=== PATIENT | male | born 1945 | race Caucasian/White ===

== ENCOUNTER 2017-05-17 15:29 | Emergency (ER) | payer OTHER ==
--- NOTE | 2017-05-17 16:09 | C.PDOC ---
History Of Present Illness 71 y/o male presents to the ED with complaints of pain to right neck, radiating down from back of head x3 days. Pain initially onset upon waking up. Discomfort radiates down right arm with numbness tingling sensation. Pt states pain is worse at night when trying to sleep. Pt denies any injury or trauma. Pt works loading boxes onto conveyor belt, doesn't think symptoms are work related. Denies vomiting, diarrhea, chest pain, SOB or any other complaints. Time Seen by Provider: 05/17/17 15:36 Chief Complaint (Nursing): Headache History Per: Patient History/Exam Limitations: no limitations Onset/Duration Of Symptoms: Days Current Symptoms Are (Timing): Still Present Severity: Mild Quality: "Pain" Preceeding Symptoms: None Recent travel outside of the [place]: No Past Medical History Reviewed: Historical Data, Nursing Documentation, Vital Signs Vital Signs: Last Vital Signs Temp 98 F 05/17/17 15:31 Pulse 72 05/17/17 15:53 Resp 20 05/17/17 15:53 BP 124/77 05/17/17 15:53 Pulse Ox 96 05/17/17 17:30 Family History: States: Unknown Family Hx - Social History Hx Tobacco Use: Yes Hx Alcohol Use: Yes Hx Substance Use: No - Immunization History Hx Tetanus Toxoid Vaccination: No Hx Influenza Vaccination: No Hx Pneumococcal Vaccination: No Review Of Systems Except As Marked, All Systems Reviewed And Found Negative. Constitutional: Negative for: Fever Cardiovascular: Negative for: Chest Pain Respiratory: Negative for: Shortness of Breath Gastrointestinal: Negative for: Vomiting Musculoskeletal: Positive for: Neck Pain Neurological: Positive for: Numbness (right arm) Physical Exam - Physical Exam Appears: Non-toxic, No Acute Distress Skin: Warm, Dry, No Rash Head: Atraumatic, Normacephalic Eye(s): bilateral: Normal Inspection, PERRL, EOMI Neck: Normal, Normal ROM, No Midline Cervical Tenderness, No Paracervical Tenderness, Supple Chest: Symmetrical Cardiovascular: Rhythm Regular, No Murmur Respiratory: Normal Breath Sounds, No Rales, No Rhonchi, No Wheezing Gastrointestinal/Abdominal: Normal Exam, Soft, No Tenderness Back: Normal Inspection, No Vertebral Tenderness Extremity: Normal ROM, No Tenderness, No Swelling Extremity: Bilateral: Atraumatic Pulses: Right Radial: Normal Neurological/Psych: Oriented x3, Normal Speech, Normal Cognition, Normal Motor, Normal Sensation ED Course And Treatment O2 Sat by Pulse Oximetry: 96 (room air) Pulse Ox Interpretation: Normal - Other Rad XR cervical spine X-Ray: Viewed By Me, Read By Radiologist Interpretation: PROCEDURE: Cervical Spine Radiographs. HISTORY: Pain. COMPARISON: None. FINDINGS: BONES: The heights of the vertebral bodies are maintained. Normal vertebral alignment is maintained. The atlantoaxial articulation is intact. The odontoid process is partially obscured. DISC SPACES : Narrowing of the C5-6 intervertebral disc space consistent with degenerative disc disease. The remaining disc spaces are maintained in height. SOFT TISSUES : Normal. No prevertebral soft tissue swelling. OTHER FINDINGS: None. IMPRESSION: No evidence of fracture. Degenerative disc disease at C5-6. Please note that the odontoid process is suboptimally evaluated on the basis of this examination. - CT Scan/US CT head Other Rad Studies (CT/US): Read By Radiologist, Radiology Report Reviewed CT/US Interpretation: PROCEDURE: CT HEAD WITHOUT CONTRAST. HISTORY: numbness in right arm. COMPARISON: None available. TECHNIQUE: Axial computed tomography images were obtained through the head/brain without intravenous contrast. Radiation dose: Total exam DLP = 801.62 mGy-cm. This CT exam was performed using one or more of the following dose reduction techniques: Automated exposure control, adjustment of the mA and/or kV according to patient size, and/or use of iterative reconstruction technique. FINDINGS: HEMORRHAGE: No intracranial hemorrhage. BRAIN: No mass effect or edema. No atrophy or chronic microvascular ischemic changes. VENTRICLES: Unremarkable. No hydrocephalus. CALVARIUM: Unremarkable. PARANASAL SINUSES: Chronic ethmoid and sphenoid sinusitis noted. MASTOID AIR CELLS: Unremarkable as visualized. No inflammatory changes. OTHER FINDINGS: None. IMPRESSION: No intracranial mass, hemorrhage or evidence of acute infarct. Chronic ethmoid and sphenoid sinusitis. Progress Note: Plan: CT head, EKG, XR cervical spine Reevaluation Time: 17:35 Reassessment Condition: Improved Disposition Counseled Patient/Family Regarding: Studies Performed, Diagnosis, Need For Followup, Rx Given - Disposition Referrals: [facility] [Outside] Disposition: HOME/ ROUTINE Disposition Time: 17:38 Condition: IMPROVED Prescriptions: Naproxen [Naprosyn] 1 tab PO BID PRN #25 tab PRN Reason: Pain Instructions: Cervical Radiculopathy (ED) Print Language: HUNGARIAN - Clinical Impression Clinical Impression: Cervical radiculitis - Scribe Statement The provider has reviewed the documentation as recorded by the Arthur Morales Provider Attestation: All medical record entries made by the Arthur were at my direction and personally dictated by me. I have reviewed the chart and agree that the record accurately reflects my personal performance of the history, physical exam, medical decision making, and the department course for this patient. I have also personally directed, reviewed, and agree with the discharge instructions and disposition.
[2017-05-17 16:10] VITALS: PULSE 72
--- NOTE | 2017-05-17 17:00 | CT ---
PROCEDURE: CT HEAD WITHOUT CONTRAST. HISTORY: numbness in right arm COMPARISON: None available. TECHNIQUE: Axial computed tomography images were obtained through the head/brain without intravenous contrast. Radiation dose: Total exam DLP = 801.62 mGy-cm. This CT exam was performed using one or more of the following dose reduction techniques: Automated exposure control, adjustment of the mA and/or kV according to patient size, and/or use of iterative reconstruction technique. FINDINGS: HEMORRHAGE: No intracranial hemorrhage. BRAIN: No mass effect or edema. No atrophy or chronic microvascular ischemic changes. VENTRICLES: Unremarkable. No hydrocephalus. CALVARIUM: Unremarkable. PARANASAL SINUSES: Chronic ethmoid and sphenoid sinusitis noted. MASTOID AIR CELLS: Unremarkable as visualized. No inflammatory changes. OTHER FINDINGS: None. IMPRESSION: No intracranial mass, hemorrhage or evidence of acute infarct. Chronic ethmoid and sphenoid sinusitis.
--- NOTE | 2017-05-17 17:02 | RAD ---
PROCEDURE: Cervical Spine Radiographs. HISTORY: Pain. COMPARISON: None. FINDINGS: BONES: The heights of the vertebral bodies are maintained. Normal vertebral alignment is maintained. The atlantoaxial articulation is intact. The odontoid process is partially obscured. DISC SPACES: Narrowing of the C5-6 intervertebral disc space consistent with degenerative disc disease. The remaining disc spaces are maintained in height. SOFT TISSUES: Normal. No prevertebral soft tissue swelling. OTHER FINDINGS: None. IMPRESSION: No evidence of fracture. Degenerative disc disease at C5-6. Please note that the odontoid process is suboptimally evaluated on the basis of this examination.
[2017-05-17 17:57] VITALS: BP 135/82; RESP 18; TEMP 98.4; O2SAT 98
--- NOTE | 2017-05-19 06:41 | CARD ---
APPROVED REPORT EKG Measurement Heart [id number] VA [id number] [id number] <Conclusion> Sinus rhythm with short VA Otherwise normal ECG
== END 2017-05-17 18:05 | disposition home or self-care (01) ==
LOC: C.ER 15:29
DX: M54.12 Radiculopathy, cervical region (principal)

== ENCOUNTER 2018-10-27 06:07 | Emergency (ER) | payer OTHER ==
--- NOTE | 2018-10-27 06:17 | C.PDOC ---
History Of Present Illness Patient presents to the ER with an acute allergic reaction of unknown etiology. Patient with facial swelling and urticaria, speaking in complete sentences. Denies chest pain or SOB. Time Seen by Provider: 10/27/18 06:16 History Per: Patient History/Exam Limitations: no limitations Onset/Duration Of Symptoms: Hrs, Sudden Onset Current Symptoms Are (Timing): Still Present Possible Cause: Unknown Associated Symptoms: Skin Rash, Swelling Home/EMS Treatment: None Severity: Moderate Pain Scale Rating Of: 5 Recent travel outside of the [place]: No Past Medical History Reviewed: Historical Data, Nursing Documentation, Vital Signs Family History: States: No Known Family Hx - Social History Hx Tobacco Use: Yes Hx Alcohol Use: Yes Hx Substance Use: No - Immunization History Hx Tetanus Toxoid Vaccination: No Hx Influenza Vaccination: No Hx Pneumococcal Vaccination: No Review Of Systems Constitutional: Negative for: Fever, Chills Cardiovascular: Negative for: Chest Pain, Palpitations Respiratory: Negative for: Cough, Shortness of Breath Musculoskeletal: Positive for: Other (Facial swelling) Skin: Positive for: Rash Physical Exam - Physical Exam Appears: Non-toxic Skin: Warm, Dry, Rash (Diffuse urticaria) Head: Normacephalic, Swelling (Facial) Eye(s): bilateral: Normal Inspection Oral Mucosa: Moist Throat: No Other (Swelling) Neck: Trachea Midline, Supple, No Other (Swelling) Chest: Symmetrical, No Tenderness Cardiovascular: Rhythm Regular Respiratory: No Rales, No Rhonchi, Wheezing (Few scattered) Gastrointestinal/Abdominal: Soft, No Tenderness Neurological/Psych: Oriented x3 ED Course And Treatment Progress Note: IV fluids, benadryl, pepcid, and solumedrol administered. Critical Care Time - Critical Care Note Total Time (in mins): 30 Documented critical care: time excludes all time spent performing seperately billable procedures. Disposition Counseled Patient/Family Regarding: Studies Performed, Diagnosis - Disposition Disposition Time: 06:17 Condition: FAIR - Clinical Impression Clinical Impression: Allergic urticaria - Scribe Statement The provider has reviewed the documentation as recorded by the Scribcoty Marie All medical record entries made by the Orlandoibe were at my direction and personally dictated by me. I have reviewed the chart and agree that the record accurately reflects my personal performance of the history, physical exam, medical decision making, and the department course for this patient. I have also personally directed, reviewed, and agree with the discharge instructions and disposition. Physician Patient Turnover Patient Signed Over To: Bibi Banks Handoff Comments: Pending re-eval and dispo
[2018-10-27 06:18] VITALS: BMI 32.8
[2018-10-27] MEDS ORDERED: DiphenhydrAMINE 50 mg/ml Inj IVP STA (06:18)
[2018-10-27] MEDS ORDERED: Sodium Chloride 0.9% 1,000 ML IV ONE (06:18)
[2018-10-27 06:24] VITALS: RESP 18
[2018-10-27] MEDS ORDERED: Sodium Chloride 0.9% 1,000 ML ONE (06:26)
[2018-10-27] MEDS ORDERED: DiphenhydrAMINE 50 mg/ml Inj ONE (06:27)
[2018-10-27 09:02] VITALS: BP 154/97; PULSE 76; TEMP 97.8; O2SAT 95
== END 2018-10-27 09:02 | disposition home or self-care (01) ==
LOC: C.ER 06:07 → SUPCPDRO 06:07 → C.ER 09:02
DX: L50.0 Allergic urticaria (principal); Z72.0 Tobacco use
CPT/HCPCS: 96374; 96375; 99285; J1200; J2930; J7030

== ENCOUNTER 2018-12-04 11:21 | Emergency (ER) | payer OTHER ==
[2018-12-04 11:21] VITALS: BMI 32.8
[2018-12-04 11:33] VITALS: BP 155/93; PULSE 87; RESP 18; TEMP 98; O2SAT 95
--- NOTE | 2018-12-04 12:57 | C.PDOC ---
History Of Present Illness 73 y/o male comes in complaining of an itchy red rash to his face, neck, and chest for the past month. Patient came here to ER in October for same complaint and was given pills that helped a little. States he doesnt have a doctor and has not followed up for his rash. No changes in rash since then. Patient doesnt remember the pills that was given to him from previous visit. Chief Complaint (Nursing): Abnormal Skin Integrity History Per: Patient History/Exam Limitations: no limitations Onset/Duration Of Symptoms: Days Current Symptoms Are (Timing): Still Present Past Medical History Reviewed: Historical Data, Nursing Documentation, Vital Signs Vital Signs: Last Vital Signs Temp 98 F 12/04/18 11:31 Pulse 87 12/04/18 11:31 Resp 18 12/04/18 11:31 BP 155/93 H 12/04/18 11:31 Pulse Ox 95 12/04/18 11:31 Family History: States: No Known Family Hx - Social History Hx Tobacco Use: Yes Hx Alcohol Use: Yes Hx Substance Use: No - Immunization History Hx Tetanus Toxoid Vaccination: No Hx Influenza Vaccination: No Hx Pneumococcal Vaccination: No Review Of Systems Constitutional: Negative for: Fever, Chills Eyes: Negative for: Redness Cardiovascular: Negative for: Chest Pain Respiratory: Negative for: Shortness of Breath Gastrointestinal: Negative for: Nausea, Vomiting, Diarrhea Genitourinary: Negative for: Dysuria, Hematuria Skin: Positive for: Rash (to face, neck, and chest) Neurological: Negative for: Weakness, Numbness, Dizziness Physical Exam - Physical Exam Appears: Non-toxic, No Acute Distress Skin: Rash (erythematous rash over his nose, cheeks, skin behind the ears, at the base of anterior neck to the chest), Other (erythematous excoriated skin, some papules on posterior ear, face more excoriated) Head: Atraumatic, Normacephalic Eye(s): bilateral: Normal Inspection, PERRL, EOMI Ear(s): Bilateral: Normal Oral Mucosa: Moist Throat: Normal, No Erythema, No Exudate Chest: Symmetrical Cardiovascular: Rhythm Regular, No Murmur Respiratory: Normal Breath Sounds, No Rales, No Rhonchi, No Wheezing Gastrointestinal/Abdominal: Soft, No Tenderness Extremity: Bilateral: Atraumatic, Normal ROM Neurological/Psych: Oriented x3, Normal Speech ED Course And Treatment O2 Sat by Pulse Oximetry: 95 (RA) Pulse Ox Interpretation: Normal Medical Decision Making Medical Decision Making: Plan: --Topical steroid cream Eczematic appearance around the base of the neck, no mucosal involvement. Patient referred to dermatology and will be discharged home. Disposition Counseled Patient/Family Regarding: Diagnosis, Need For Followup, Rx Given - Disposition Referrals: César Andrew MD [Staff Provider] - Solitario Dinh DO [Doctor Osteopathy] - Jessika Kelley MD [Medical Doctor] - Disposition: HOME/ ROUTINE Disposition Time: 12:57 Condition: STABLE Prescriptions: Hydrocortisone 1% Cream [Cortizone 1% Cream] 1 appl TP BID #1 tube Instructions: Dermatitis Forms: [facility] (Indonesian), Gen Discharge Inst Indonesian Print Language: ALBANIAN - Clinical Impression Clinical Impression: Dermatitis - PA / IT HELP DESK MANAGER / Resident Statement / has reviewed & agrees with the documentation as recorded. - Scribe Statement The provider has reviewed the documentation as recorded by the Scribe All medical record entries made by the Scribe were at my direction and personally dictated by me. I have reviewed the chart and agree that the record accurately reflects my personal performance of the history, physical exam, medical decision making, and the department course for this patient. I have also personally directed, reviewed, and agree with the discharge instructions and disposition.
== END 2018-12-04 13:20 | disposition home or self-care (01) ==
LOC: C.ER 11:21
DX: L30.9 Dermatitis, unspecified (principal)

== ENCOUNTER 2019-03-13 10:06 | Outpatient (CLI) | payer SELFPAY | END 2019-03-13 10:07 | disposition home or self-care (01) | LOC: C.RADH 10:06 | DX: Z12.2 Encounter for screening for malignant neoplasm of respiratory organs (principal) ==